=== PATIENT | female | born 1965 | race Caucasian/White ===

== ENCOUNTER 2023-04-07 08:19 | Emergency (ER) | payer SELFPAY ==
[2023-04-07] MEDS ORDERED: Sodium Chloride 0.9% 10 ML Syringe FLUSH PRN (08:29)
[2023-04-07 08:37] LABS: BASOPHILS PERCENT AUTO 0.4 % (0.0-1.0); EOSINOPHILS PERCENT AUTO 0.8 % (0.0-6.0); HEMATOCRIT 43.6 % (37.0-47.0); HEMOGLOBIN 15.9 gm/dl (12.0-16.0); IMMATURE GRAN ABSOLUTE AUTO 0.01 K/mm3 (0.00-0.05); IMMATURE GRAN PERCENT AUTO 0.2 % (0.0-0.4); LYMPHOCYTES ABSOLUTE AUTO 1.8 K/mm3 (1.0-4.8); LYMPHOCYTES PERCENT AUTO 36.7 % (24.0-44.0); MEAN CORPUSCULAR HEMOGLOBIN 42.3 pg (28.0-32.0); MEAN CORPUSCULAR HGB CONC 36.5 g/dl (32.0-36.0); MEAN PLATELET VOLUME 9.3 fl (9.4-12.3); MONOCYTES ABSOLUTE AUTO 0.4 K/mm3 (0.0-0.8); MONOCYTES PERCENT AUTO 8.8 % (0.0-8.0); NEUTROPHILS ABSOLUTE AUTO 2.6 K/mm3 (1.8-7.7); NEUTROPHILS PERCENT AUTO 53.1 % (41.0-71.0); PLATELET COUNT,PLT 210 K/mm3 (150-400); RED BLOOD CELL COUNT 3.76 M/mm3 (4.10-5.30); WHITE BLOOD CELL COUNT,WBC 4.98 K/mm3 (3.9-11.3)
[2023-04-07] MEDS ORDERED: Sodium Chloride 0.9% 1,000 ML IV SCH (08:45)
[2023-04-07] MEDS ORDERED: Ondansetron 4 MG/2 ML SDV IVPUSH ONE (08:49)
[2023-04-07 09:02] LABS: A/G RATIO 0.9 (1-2); ALANINE AMINOTRANSFERASE,ALT 15 U/L (14-59); ALBUMIN 3.3 g/dl (3.4-5.0); ALKALINE PHOSPHATASE 123 U/L (46-116); ANION GAP 14.1 (5-15); ASPARTATE AMNIOTRANSFERASE,AST 23 U/L (15-37); BILIRUBIN TOTAL 0.4 mg/dL (0.2-1.0); BLOOD UREA NITROGEN,BUN 8 mg/dL (7-18); BUN/CREATININE RATIO 13.3 (14-18); CALCIUM 8.3 mg/dL (8.5-10.1); CARBON DIOXIDE,CO2 25 mEq/L (21-32); CHLORIDE,CL 106 mEq/L (98-107); CREATININE 0.6 mg/dL (0.55-1.02); ESTIMATED GFR 105 mL/min (>60); ETHANOL BLOOD MEDICAL 0.21 gm% (0.00); GLUCOSE RANDOM 107 mg/dL (70-99); MAGNESIUM 1.7 mg/dL (1.8-2.4); POTASSIUM,K 3.1 mEq/L (3.5-5.1); PROTEIN TOTAL,TP 6.9 g/dl (6.4-8.2); SODIUM,NA 142 mEq/L (136-145); TROPONIN I HIGH SENSITIVITY 6 pg/mL (<=51)
[2023-04-07 09:05] LABS: C-REACTIVE PROTEIN < 0.2 mg/dL (<1.0)
[2023-04-07 09:12] LABS: SLIDE REVIEW ABNORMAL SMEAR
[2023-04-07 11:55] LABS: BARBITURATE SCREEN,URINE NEGATIVE (CUTOFF=200); BENZODIAZEPINES SCREEN,URINE NEGATIVE (CUTOFF=150); BUPRENORPHINE SCREEN,URINE NEGATIVE (CUTOFF=10); METHADONE SCREEN, URINE NEGATIVE (CUTOFF=200); METHAMPHETAMINES SCREEN, URINE NEGATIVE (CUTOFF=500); OXYCODONE SCREEN,URINE NEGATIVE (CUT0FF=100); THC SCREEN,URINE 20 NG/ML NEGATIVE (CUTOFF=50)
[2023-04-07 11:58] LABS: AMPHETAMINES SCREEN, URINE NEGATIVE (CUTOFF=500)
[2023-04-07 13:09] VITALS: BP 127/76; PULSE 62
== END 2023-04-07 12:45 | disposition home or self-care (01) ==
LOC: JD.ED 08:19
DX: M25.512 Pain in left shoulder (principal); F10.10 Alcohol abuse, uncomplicated; F17.210 Nicotine dependence, cigarettes, uncomplicated; Y90.1 Blood alcohol level of 20-39 mg/100 ml
CPT/HCPCS: 36415; 70450; 70450-26; 70496; 70496-26; 70498; 70498-26; 71250; 71250-26; 73030-26-LT; 73030-LT; 80053; 80306; 80307; 82947; 83735; 84484; 85025; 86140; 93005; 93010; 96361; 96374; 99284; 99284-25; J2405; J3490; J7030

== ENCOUNTER 2024-04-05 10:58 | Emergency (ER) | payer SELFPAY ==
[2024-04-05 11:13] VITALS: BP 122/87; PULSE 80
[2024-04-05] MEDS ORDERED: Sodium Chloride 0.9% 10 ML Syringe FLUSH PRN (11:19)
[2024-04-05 12:51] LABS: HEMATOCRIT 46.6 % (37.0-47.0); MEAN CORPUSCULAR HEMOGLOBIN 37.5 pg (28.0-32.0); MEAN CORPUSCULAR HGB CONC 34.3 g/dl (32.0-36.0); MEAN CORPUSCULAR VOLUME 109.1 fl (83.0-99.0); MEAN PLATELET VOLUME 9.2 fl (9.4-12.3); PLATELET COUNT,PLT 230 K/mm3 (150-400); RED BLOOD CELL COUNT 4.27 M/mm3 (4.10-5.30); WHITE BLOOD CELL COUNT,WBC 4.45 K/mm3 (3.9-11.3)
[2024-04-05] MEDS: Sodium Chloride 0.9% 1,000 ML IV STA (12:51)
[2024-04-05 13:16] LABS: A/G RATIO 0.9 (1-2); ALBUMIN 3.1 g/dl (3.4-5.0); ANION GAP 9.6 (5-15); BILIRUBIN TOTAL 0.3 mg/dL (0.2-1.0); BUN/CREATININE RATIO 8.3 (14-18); CALCIUM 8.3 mg/dL (8.5-10.1); CREATININE 0.6 mg/dL (0.55-1.02); EST CRCL DRUG DOSING (CG) 100.6 mL/min; ETHANOL BLOOD MEDICAL 0.18 gm% (0.00); POTASSIUM,K 3.6 mEq/L (3.5-5.1); PROTEIN TOTAL,TP 6.6 g/dl (6.4-8.2); TSH 0.818 uIU/mL (0.358-3.74)
[2024-04-05 13:46] LABS: BAND PERCENT MAN 0 % (0-10); BASOPHILS PERCENT MAN 0 (0.1-1.2); EOSINOPHILS PERCENT MAN 2 % (0.7-5.8); LYMPHOCYTES % ATYPICAL MANUAL 0 %; LYMPHOCYTES PERCENT MAN 32 % (20-40); MONOCYTES PERCENT MAN 0 % (2-10); PLATELET COUNT ESTIMATE ADEQUATE
[2024-04-05 16:52] LABS: BARBITURATE SCREEN,URINE NEGATIVE (CUTOFF=200); BENZODIAZEPINES SCREEN,URINE NEGATIVE (CUTOFF=150); BUPRENORPHINE SCREEN,URINE NEGATIVE (CUTOFF=10); METHADONE SCREEN, URINE NEGATIVE (CUTOFF=200); METHAMPHETAMINES SCREEN, URINE NEGATIVE (CUTOFF=500); OXYCODONE SCREEN,URINE NEGATIVE (CUT0FF=100); THC SCREEN,URINE 20 NG/ML NEGATIVE (CUTOFF=50)
[2024-04-05 16:55] LABS: AMPHETAMINES SCREEN, URINE NEGATIVE (CUTOFF=500)
== END 2024-04-05 18:00 | disposition home or self-care (01) ==
LOC: JD.ED 10:58
DX: F10.10 Alcohol abuse, uncomplicated (principal); F17.210 Nicotine dependence, cigarettes, uncomplicated
CPT/HCPCS: 36415; 80053; 80143; 80179; 80306; 80307; 84443; 85007; 85027; 93005; 96360; 96361; 99284; J7030; 93010; 99283